=== PATIENT | male | born 1985 | race Caucasian/White ===

== ENCOUNTER 2024-07-01 15:30 | Outpatient (RCR) | payer OTHER, SELFPAY | END 2024-10-29 23:59 | disposition home or self-care (01) | PROVIDERS: PCP Family Medicine; Visit Provider Family Medicine | DX: M54.12 Radiculopathy, cervical region (principal); Z51.89 Encounter for other specified aftercare | CPT/HCPCS: 97032; 97110; 97140; 97161 ==

== ENCOUNTER 2024-07-06 12:47 | Outpatient (CLI) | payer OTHER, SELFPAY ==
--- NOTE | 2024-07-06 13:00 | CRLHL7_ITS ---
For Patients: As a result of the Century Cures Act, medical imaging exams and procedure reports are released immediately into your electronic medical record. You may view this report before your referring provider. If you have questions, please contact your health care provider. INDICATION: Radiculopathy. TECHNIQUE: Multiplanar multisequence MR imaging of the cervical spine without intravenous contrast. COMPARISON: None. FINDINGS: Slight leftward cervical curvature. The cervical lordosis is mildly straightened. Vertebral body heights are maintained. No acute fracture or spondylolisthesis. No T1 hypointense lesions or marrow edema. The cervical cord is normal in signal intensity. C2-3: No spinal canal or neural foraminal narrowing. C3-4: Shallow posterior disc bulge. Right uncinate spurring. No spinal canal narrowing. [id number] right and without left neural foraminal narrowing. C4-5: Annular bulge. No spinal canal or neural foraminal narrowing. C5-6: Shallow posterior disc osteophyte complex. Minimal spinal canal narrowing. No neural foraminal narrowing. C6-7: Shallow posterior disc osteophyte complex. Left lateral disc extrusion demonstrating cephalad and caudal migration measures 4 mm in short axis. No spinal canal narrowing. Severe left without right neural foraminal narrowing. C7-T1: Mild right facet arthropathy. No spinal canal or neural foraminal narrowing. IMPRESSION: 1. At C6-7, left foraminal disc extrusion potentially impinges the left C7 nerve root. 2. At C3-4, [id number] right neural foraminal narrowing. Dictated by Charlie Rios MD @ 07/06/2024 2:55:56 PM (Electronically Signed)
== END 2024-07-06 12:48 | disposition home or self-care (01) ==
PROVIDERS: PCP Family Medicine; Visit Provider Family Medicine
DX: M54.12 Radiculopathy, cervical region (principal); M50.21 Other cervical disc displacement, high cervical region
CPT/HCPCS: 72141